=== PATIENT | male | born 1980 | race Caucasian/White ===

== ENCOUNTER 2018-03-04 00:32 | Emergency (ER) | payer OTHER ==
[~2018-03-04] VITALS: Ht 172.7 cm; Wt 86.6 kg
[2018-03-04 00:46] VITALS: BP 136/81
--- NOTE | 2018-03-04 03:11 | NUR ---
INFORMED BY SECURITY "PT LEFT LONG TIME AGO"
== END 2018-03-04 03:13 | disposition home or self-care (01) ==
LOC: ER 00:40
DX: R09.81 Nasal congestion (principal); Z53.21 Procedure and treatment not carried out due to patient leaving prior to being seen by health care provider
CPT/HCPCS: A4606; Z7610

== ENCOUNTER 2021-01-29 08:35 | Emergency (ER) | payer OTHER ==
[~2021-01-29] VITALS: Ht 177.8 cm; Wt 93.0 kg
--- NOTE | 2021-01-29 08:51 | NUR ---
THE PATIENT BIBSELF FOR C/O L HAND PAIN, SWELLING X 2 DAYS S/P GLF. THE PATIENT RATES LEFT HADN PAIN 04/17. DENIES NUMBNESS OR TINGLILNG AT THIS TIME. PATIENT IS ALERT AND ORIENTED X4. PATIENT IS IN ROOM 10. RESPIRATION REGULAR AND UNLABORED. WILL CONTINUE TO MONITOR.
--- NOTE | 2021-01-29 08:54 | NUR ---
PATIENT SEEN BY DR DORAN.
--- NOTE | 2021-01-29 08:57 | NUR ---
PATIENT RATES LEFT HAND PAIN 6/10, HOWEVER, HE ASKED DR DORAN NOT TO ORDER ANY PAIN MEDICATIONS. DESPITE DR DORAN EXPLAINING RISKS AND BENEFITS, THE PATIENT STILL INSISTED NOT TO HAVE ANY PAIN MEDICATION. PATIENT`S WISHES RESPECTED.
[2021-01-29] MEDS ORDERED: IBUP-1955 PO (09:44)
--- NOTE | 2021-01-29 10:01 | NUR ---
LEFT HAND SPLINT BEING APPLIED
--- NOTE | 2021-01-29 10:33 | NUR ---
patient alert and oriented x4.Patient discharged to home in stable condition. Written and verbal after care instructions given. Patient verbalizes understanding of instruction. the patient left ER in stable conditon.
[2021-01-29 10:34] VITALS: BP 131/75
== END 2021-01-29 10:34 | disposition home or self-care (01) ==
LOC: ER 08:45
DX: S62.367A Nondisplaced fracture of neck of fifth metacarpal bone, left hand, initial encounter for closed fracture (principal); Z98.890 Other specified postprocedural states; W01.0XXA Fall on same level from slipping, tripping and stumbling without subsequent striking against object, initial encounter; Y93.89 Activity, other specified; Y92.89 Other specified places as the place of occurrence of the external cause; Y99.8 Other external cause status
CPT/HCPCS: 73130-TC

== ENCOUNTER 2022-10-03 10:44 | Emergency (ER) | payer OTHER ==
[~2022-10-03] VITALS: Ht 170.2 cm; Wt 72.6 kg
[~2022-10-03 10:44] MED LIST: IBUP-1955 PO
[2022-10-03 11:21] VITALS: BP 123/89
[2022-10-03] MEDS ORDERED: LIDOCAINE HCL/MPF 1% 30 ML VIAL IJ ONE (11:28)
[2022-10-03] MEDS ORDERED: LIDOCAINE 0.5% HCL 50 ML VIAL IJ ONE (11:30)
[2022-10-03] MEDS ORDERED: TDAP [DIPH/PERTUSSIS/TET] 0.5 ML VIAL IM ONE ×2 (11:30→12:08)
[2022-10-03] MEDS ORDERED: IBUPROFEN 400 MG TABLET PO ONE (11:30)
[2022-10-03] MEDS ORDERED: IBUPROFEN 400 MG TABLET ONE (12:08)
--- NOTE | 2022-10-03 12:37 | NUR ---
DR GARCIA AT BEDSIDE FOR LAC REPAIR
[2022-10-03] MEDS ORDERED: IBUP-1953 PO (12:56)
--- NOTE | 2022-10-03 13:21 | NUR ---
Patient discharged to home in stable condition. Written and verbal after care instructions given. Patient verbalizes understanding of instruction.
== END 2022-10-03 13:22 | disposition home or self-care (01) ==
LOC: ER 10:57
DX: S61.411A Laceration without foreign body of right hand, initial encounter (principal); Z79.1 Long term (current) use of non-steroidal anti-inflammatories (NSAID); W27.0XXA Contact with workbench tool, initial encounter; Y93.89 Activity, other specified; Y92.89 Other specified places as the place of occurrence of the external cause; Y99.8 Other external cause status
CPT/HCPCS: 99283; 12002; 90471; 90715; 73130; A6403; J3490

== ENCOUNTER 2024-05-18 22:45 | Emergency (ER) | payer OTHER ==
[~2024-05-18] VITALS: Ht 175.3 cm; Wt 74.8 kg
[~2024-05-18 22:45] MED LIST changes: +IBUP-1953 PO
[2024-05-18] MEDS ORDERED: HYDROCODONE/APAP 10/325MG TABLET ONE (23:57)
[2024-05-19] MEDS: HYDROCODONE/APAP 10/325MG TABLET PO ONE (00:03)
[2024-05-19] MEDS ORDERED: HYDR-4209 PO (00:33)
[2024-05-19] MEDS ORDERED: KETO10TA2 PO (00:33)
[2024-05-19 01:00] VITALS: BP 124/81; TEMP 98.4; O2SAT 98
== END 2024-05-19 00:22 | disposition home or self-care (01) ==
LOC: ER 22:54
DX: S20.212A Contusion of left front wall of thorax, initial encounter (principal); S40.012A Contusion of left shoulder, initial encounter; F17.200 Nicotine dependence, unspecified, uncomplicated; W18.39XA Other fall on same level, initial encounter; Y93.89 Activity, other specified; Y92.89 Other specified places as the place of occurrence of the external cause; Y99.8 Other external cause status
CPT/HCPCS: 71250-TC; 73030-TC